=== PATIENT | male | born 1965 | race Caucasian/White ===

== ENCOUNTER → 2017-03-24 | Outpatient (CLI) | payer OTHER | LOC: FIMAGING 07:26 | PROVIDERS: ATTEND Internal Medicine Infectious Disease | DX: L97.821 Non-pressure chronic ulcer of other part of left lower leg limited to breakdown of skin (principal); I87.2 Venous insufficiency (chronic) (peripheral) ==

== ENCOUNTER 2017-03-31 07:16 | Day surgery (SDC) | payer OTHER ==
[2017-03-31] MEDS ORDERED: SODIUM TETRADECYL SULFATE 60 MG/2 ML VIAL IV ONE (08:16)
[2017-03-31] MEDS ORDERED: IOPAMIDOL (ISOVUE-300) 100 ML BTL ONE ×2 (08:17→10:52)
[2017-03-31] MEDS ORDERED: MIDAZOLAM 2 MG/2 ML VIAL ONE (08:27)
[2017-03-31] MEDS ORDERED: fentaNYL 100 MCG/2 ML INJ ONE (08:27)
[2017-03-31] MEDS ORDERED: NS 1,000 ML IV ONE (10:47)
[2017-03-31] MEDS ORDERED: ONDANSETRON 4 MG/2 ML VIAL IVP ONE (10:47)
== END 2017-03-31 12:34 | disposition home or self-care (01) ==
LOC: FIMAGING 07:16
PROVIDERS: ATTEND Radiology Diagnostic Radiology
PROC: 3E033TZ Introduction of Destructive Agent into Peripheral Vein, Percutaneous Approach (ICD-10-PCS; principal; 2017-03-31 11:10)
DX: I83.813 Varicose veins of bilateral lower extremities with pain (principal); L97.829 Non-pressure chronic ulcer of other part of left lower leg with unspecified severity; I87.312 Chronic venous hypertension (idiopathic) with ulcer of left lower extremity; I87.2 Venous insufficiency (chronic) (peripheral); H54.7 Unspecified visual loss; Z96.21 Cochlear implant status
CPT/HCPCS: 36470; 36471; 75822; 99152; 99153; C1769; J2250; J3010; Q9967

== ENCOUNTER → 2017-09-05 | Outpatient (CLI) | payer OTHER | LOC: FCPNEURO 23:16 | PROVIDERS: ATTEND Student in an Organized Health Care Education/Training Program | DX: G47.33 Obstructive sleep apnea (adult) (pediatric) (principal) ==

== ENCOUNTER 2017-12-29 12:43 | Inpatient (IN) | payer OTHER ==
[2017-12-29] MEDS ORDERED: ONDANSETRON DISINTEGRATING 4 MG TAB PO PRN (13:29)
[2017-12-29] MEDS ORDERED: ONDANSETRON 4 MG/2 ML VIAL IVP PRN (13:29)
[2017-12-29] MEDS ORDERED: ceFAZolin 2 GM/DEXTROSE 100 ML IV SCH (14:00)
[2017-12-29 14:54] LABS: PLATELET COUNT 184 10^3/uL (150-400)
[2017-12-29] MEDS: ceFAZolin 2 GM/SWFI 2 GM/20 ML SYR IVP SCH ×2 (14:58→21:10)
--- NOTE | 2017-12-29 16:08 | PCMIDPN ---
Assessment/Plan: Assessment/Plan: * Left lower extremity cellulitis: Will treat with cefazolin and lower extremity elevation. Follow clinically over time. See [facility] today for full details. This note can be viewed in Metaps under separate visit for 12/29/2017. 12/29/17 16:06 Subjective: Please see wound healing center note for full details. Objective: Vital Signs Temp Pulse Resp BP Pulse Ox 37.2 C 78 16 164/94 H 94 12/29/17 13:24 12/29/17 13:24 12/29/17 13:24 12/29/17 13:24 12/29/17 13:24 Laboratory Results 12/29/17 14:30 12/29/17 14:30 C-Reactive Protein 10.3 mg/L (<10.0) H 12/29/17 14:30 ICD10 Worksheet Patient Problems: Problems Problem Status Onset Cellulitis and abscess of left leg Acute Cellulitis and abscess of left leg Acute - ICD10 Problem Qualifiers (1) Cellulitis and abscess of left leg (2) Cellulitis and abscess of left leg
[2017-12-29] MEDS ORDERED: hydrALAZINE 25 MG TAB PO PRN (16:47)
[2017-12-29] MEDS ORDERED: D50W 25 GM/50 ML VIAL IVP PRN (16:47)
--- NOTE | 2017-12-29 16:49 | WOCRNPDOC ---
WOCRN Advanced Assessment Note - Skin Integrity Problem, Advanced Assess Left Lower Medial Leg Venous Stasis Ulcer Dressing Type: Open to Air Exudate Amount: None Sophie Wound Tissue: Erythema, Hot, Hemosiderin Staining, Venous Dermatitis, Xerotic, Scarred Wound Bed Constitution: Scab Site Measurement - Head-to-Toe Length X Width X Depth (cm): 10.3x4.1x0.1 Skin Integrity Problem Comment: Area mostly with small scabs but also with small partial thickness openings. Patient was at outpatient wound healing center this morning and sent to the ED for suspicion of infection in left lower leg. Patient has bilateral venous stasis changes in lower legs. Calf measurement in cm: R: 42.5, L: 46, Ankle R: 24.5, L 27.5. Tubigrip F supplied. Discussed plan with Kaykay MANUEL.
--- NOTE | 2017-12-29 18:22 | GHP ---
[f rep st] HISTORY AND PHYSICAL DATE OF ADMISSION: 12/29/2017 CHIEF COMPLAINT: Left lower extremity swelling, redness. HISTORY OF PRESENT ILLNESS: The patient is a 52-year-old man with a history of chronic lower extremi ty venous stasis and diabetes mellitus as well as hypertension and blindness since , who present s to the hospital for direct admission from the [facility]. He has been followed i n wound care for chronic venous insufficiency. He has had a prior history of ablation in 2016. Toda y in the outpatient clinic, he noted increasing edema and tenderness in his left lower extremity. He was evaluated by the infectious disease specialist, Dr. Ivan Logan, who felt that he had increased er ythema. He does endorse some low-grade subjective fevers over the past couple of days, though he is afebrile on arrival. He denies chills or rigors. He has had previous cultures of the leg from 2016 that grew methicillin-sensitive Staph aureus. He otherwise denies chest pain, shortness of breath, a bdominal pain, or changes in his bowel or bladder habits. He is admitted to the hospital for IV anti biotics and further management. PAST MEDICAL HISTORY: 1. Diabetes mellitus type 2. His A1c in May 2017, was 8.4. After starting metformin and making dietary changes, his A1c was down to 6.1 in September 2017. 2. Chronic bilateral lower extremity venous insufficiency with chronic venous stasis ulcers and vari cosities. 3. Scoliosis. 4. GERD. 5. 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 6. Peripheral neuropathy. MEDICATIONS: Please see [facility] for completed outpatient medication list. ALLERGIES: Adhesive tape and Lasix. FAMILY HISTORY: His father had dementia. SOCIAL HISTORY: The patient lives independently with his who is also blind, they assist each ot her. He denies tobacco or alcohol use. He is on disability. REVIEW OF SYSTEMS: A 10-point review of systems was performed and was negative except as per HPI. OBJECTIVE: VITAL SIGNS: Temperature is 37.2, blood pressure 164/94, heart rate 78, respiratory rate 16. He is 94% on room air. GENERAL: Patient is awake, alert, and oriented in no acute distress. H EENT: Head is atraumatic, normocephalic. Pupils equal, round, and reactive to light. Extraocular m uscles intact. Oropharynx clear. Mucous members are moist. NECK: Supple. There is no JVD. HEART : Regular rate and rhythm, without murmur. LUNGS: Clear to auscultation bilaterally. ABDOMEN: Sof t, obese, nondistended, nontender. Normoactive bowel tones. EXTREMITIES: He has bilateral chronic venous stasis changes with brawny edema. However, his left lower extremity has increased erythema ex tending into the foot and calcaneal region. There are also some chronic wounds without purulence or oozing. His feet are otherwise warm and well perfused. He has slightly increased edema on the left compared to the right. NEUROLOGIC EXAM: Grossly nonfocal. Noting chronic blindness. LABORATORY DATA: CBC reveals white blood cell count of 13.7 with 71% neutrophils. Basic metabolic p narayan shows normal electrolytes. Creatinine 1.1. Blood glucose on arrival of 111. CRP is 10.3. ASSESSMENT AND PLAN: The patient is a 52-year-old male with history of diabetes, hypertension, and c hronic venous insufficiency. He is admitted to the hospital with left lower extremity cellulitis. 1. Left lower extremity cellulitis in the setting of chronic venous stasis and chronic ulcers. He w as evaluated by Infectious Disease in the clinic this afternoon. He has had previous cultures with m ethicillin-sensitive staphylococcus aureus. He will be treated with cefazolin 2 g intravenous q.8 ho urs. Wound care consult is requested. He needs to elevate his leg. I will continue to follow his c linical course. He has no evidence of sepsis. We will check a lower extremity ultrasound to rule ou t deep vein thrombosis. 2. Diabetes mellitus type 2. His most recent A1c was 6.1. I will continue his metformin as I do no t expect he will undergo any imaging. We will also provide as needed sliding scale insulin, if neede d. 3. Hypertension. His blood pressure is suboptimally controlled on arrival. We will plan to continu e his outpatient medications, including propranolol and triamterene hydrochlorothiazide. I will also provide as needed hydralazine. 4. Hypothyroidism. Continue levothyroxine. 5. Peripheral neuropathy. Continue gabapentin. 6. 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 7. Deep vein thrombosis prophylaxis. Lovenox. CODE STATUS: Patient is a full code. DISPOSITION: Patient is admitted to inpatient status. I anticipate greater than 48 hours hospitaliz ation for ongoing management of his lower extremity cellulitis. PT/OT consults are requested. /[id number]/MODL
[2017-12-29] MEDS: INSULIN LISPRO 100 UNIT/ML SC SCH (18:47)
[2017-12-29] MEDS: PROPRANOLOL SR 80 MG CAP PO SCH (21:08)
[2017-12-29] MEDS: GABAPENTIN 100 MG CAP PO SCH (21:08)
[2017-12-29] MEDS: metFORMIN HCL 500 MG TAB PO SCH (23:52)
[2017-12-30 05:06] LABS: PLATELET COUNT 172 10^3/uL (150-400)
[2017-12-30] MEDS: ceFAZolin 2 GM/SWFI 2 GM/20 ML SYR IVP SCH ×3 (06:30→21:39)
[2017-12-30] MEDS: LEVOTHYROXINE 100 MCG TAB PO SCH (06:30)
--- NOTE | 2017-12-30 08:39 | HOSPPROG ---
Hospitalist Progress Note Assessment/Plan: LLE cellulitis in setting of chronic venous insufficiency and chronic LE wounds - A bit improved today. WBCs normalized, afebrile. Prior leg Cx with MSSA in 2016. U/S neg for DVT. Left inguinal adenopathy likely 2/2 LLE cellulitis, follow. -Continue IV Cefazolin, wound care, elevate leg -suspect he can d/c tomorrow on oral atbx such as keflex if ID agrees Hypertension - cont outpt meds Diabetes type 2 - well controlled, a1c 6.5. Cont metformin, SSI. 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 Less pain. No fever. Eating well. No CP or SOB. Objective: Vital Signs Temp Pulse Resp BP Pulse Ox 36.5 C 75 17 141/98 H 97 12/30/17 04:00 12/30/17 04:00 12/30/17 04:00 12/30/17 04:00 12/30/17 04:00 Laboratory Results 12/30/17 04:26 12/29/17 14:30 12/29/17 12/30/17 12/31/17 05:59 05:59 05:59 Intake Total 600 Output Total 300 Balance -300 600 - Physical Exam Constitutional: no apparent distress Eyes: PERRL Ears, Nose, Mouth, Throat: moist mucous membranes Cardiovascular: regular rate and rhythym Respiratory: no respiratory distress, clear to auscultation Gastrointestinal: normoactive bowel sounds, soft, non-tender abdomen Skin: warm Musculoskeletal: other (B/L LE brawny edema, decreased erythema of LLE, wounds stable) Neurologic: AAOx3 Psychiatric: interacting appropriately ICD10 Worksheet Patient Problems: Problems Problem Status Onset Cellulitis and abscess of left leg Acute Cellulitis and abscess of left leg Acute
[2017-12-30] MEDS ORDERED: POTASSIUM CHLORIDE 20 MEQ PO SCH (09:00)
[2017-12-30] MEDS: metFORMIN HCL 500 MG TAB PO SCH ×2 (09:32→21:40)
[2017-12-30] MEDS: PROPRANOLOL SR 80 MG CAP PO SCH ×2 (09:33→21:39)
[2017-12-30] MEDS: TRIAMTERENE/HCTZ 75/50 1 EACH TAB PO SCH (09:35)
[2017-12-30] MEDS: GABAPENTIN 100 MG CAP PO SCH ×3 (09:35→21:40)
[2017-12-30] MEDS: PANTOPRAZOLE SODIUM 40 MG TAB PO SCH (09:35)
[2017-12-30] MEDS: ENOXAPARIN 40 MG/0.4 ML SYR SC SCH (09:42)
--- NOTE | 2017-12-30 11:03 | PDMN ---
Medical Necessity Medical necessity: Patient meets inpatient criteria per physician note and [facility] M -69 Cellulitis (presented at O/P wound clinic with low-grade subjective fever, increasing erythema, tenderness, edema LLE, leukocytosis/WBC > 13,000; seen by ID and started on IV Cefazolin ; previous cultures in 2016 with MSSA; history of chronic LE venous stasis and DM2, HTN, blind from ; anticipated LOS > 2 midnights for ongoing IV antibiotics and wound evaluation/treatment.)
--- NOTE | 2017-12-30 12:12 | PCMIDPN ---
Assessment/Plan: Assessment: Left lower leg cellulitis. Patient has chronic dermatitis and wounds the left lower leg. This resulted in significant cellulitis seen in Wound Clinic prior to his admission. His visual problems complicate home therapy. At this moment it appears that his legs have improved since yesterday. Will continue the cefazolin for another 1-2 days to ensure resolution of soft tissue infection prior to transition oral therapy to sent home. Plan: 1. Continue IV cefazolin presently. 2. Follow appearance of the left lower extremity. 3. Probable discharge home on oral Keflex in 2-3 days. 12/30/17 17:33 Subjective: Patient is sitting in a chair in his hospital room. He is legally blind. His is in the room as well. She is also sight impaired. Patient states that he is feeling somewhat better today. Objective: Cefazolin # 1 Vital Signs Temp Pulse Resp BP Pulse Ox 37.0 C 70 16 116/67 92 12/30/17 11:48 12/30/17 11:48 12/30/17 11:48 12/30/17 11:48 12/30/17 11:48 Laboratory Results 12/30/17 04:26 12/29/17 14:30 12/29/17 12/30/17 12/31/17 05:59 05:59 05:59 Intake Total 600 Output Total 300 Balance -300 600 C-Reactive Protein 10.3 mg/L (<10.0) H 12/29/17 14:30 - Physical Exam General Appearance: WD/WN, alert, no apparent distress, non-toxic Respiratory: lungs clear, No respiratory distress Cardiac/Chest: regular rate, rhythm, No tachycardia Extremities: calf tenderness, inflammation (Mild), swelling (Left lower calf), No non-tender (Left calf with some tenderness to palpation. No fluctuance.), No erythema ICD10 Worksheet Patient Problems: Problems Problem Status Onset Cellulitis and abscess of left leg Acute Cellulitis and abscess of left leg Acute
--- NOTE | 2017-12-30 12:55 | ASMTCMCOM ---
CM Note CM Note Notes: Chart reviewed for dc planning purposes. Patient direct admit from outpatient wound clinic for signs of lower extremity cellulitis. He is being treated by ID with antibiotics. He has a complex medical history including diabetes and blindness. Per PT he has no needs. CM to follow. Date Signed: 12/30/2017 12:54 PM Electronically Signed By:Blanca Gaspar RN
[2017-12-30] MEDS: POTASSIUM CHLORIDE 10 MEQ PO SCH (12:56)
[2017-12-30] MEDS: INSULIN LISPRO 100 UNIT/ML SC SCH ×3 (13:26→19:17)
[2017-12-31] MEDS: ceFAZolin 2 GM/SWFI 2 GM/20 ML SYR IVP SCH ×3 (06:25→21:42)
[2017-12-31] MEDS: LEVOTHYROXINE 100 MCG TAB PO SCH (06:25)
--- NOTE | 2017-12-31 08:26 | HOSPPROG ---
Hospitalist Progress Note Assessment/Plan: LLE cellulitis in setting of chronic venous insufficiency and chronic LE wounds - Improving. WBCs normalized, afebrile. Prior leg Cx with MSSA in 2016. U/S neg for DVT. Left inguinal adenopathy seen on u/s likely 2/2 LLE cellulitis, outpt follow up to ensure resolution. -Continue IV Cefazolin, wound care, elevate leg -suspect he can d/c in 1-2 days on oral atbx such as keflex if ID agrees Hypertension - cont outpt meds Diabetes type 2 - well controlled, a1c 6.5. Cont metformin, SSI. 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 Up in chair. Less pain in LLE. No fevers. Good appetite. Objective: Vital Signs Temp Pulse Resp BP Pulse Ox 37.0 C 78 16 145/86 H 95 12/31/17 04:00 12/31/17 04:00 12/31/17 04:00 12/31/17 04:00 12/31/17 04:00 Laboratory Results 12/30/17 04:26 12/29/17 14:30 12/30/17 12/31/17 01/01/18 05:59 05:59 05:59 Intake Total 1200 Output Total 300 250 300 Balance -300 950 -300 - Physical Exam Constitutional: no apparent distress Eyes: PERRL Ears, Nose, Mouth, Throat: moist mucous membranes Cardiovascular: regular rate and rhythym Respiratory: no respiratory distress Gastrointestinal: normoactive bowel sounds Genitourinary: no bladder fullness Skin: warm Musculoskeletal: other (b/l LE's with brawny edema c/w venous stasis, LLE with decreased erythema, decreased warmth) Neurologic: AAOx3 Psychiatric: interacting appropriately ICD10 Worksheet Patient Problems: Problems Problem Status Onset Cellulitis and abscess of left leg Acute Cellulitis and abscess of left leg Acute
[2017-12-31] MEDS: INSULIN LISPRO 100 UNIT/ML SC SCH ×3 (09:10→18:17)
[2017-12-31] MEDS: metFORMIN HCL 500 MG TAB PO SCH ×2 (09:25→21:42)
[2017-12-31] MEDS: GABAPENTIN 100 MG CAP PO SCH ×3 (09:25→21:43)
[2017-12-31] MEDS: PROPRANOLOL SR 80 MG CAP PO SCH ×2 (09:25→21:43)
[2017-12-31] MEDS: PANTOPRAZOLE SODIUM 40 MG TAB PO SCH (09:26)
[2017-12-31] MEDS: TRIAMTERENE/HCTZ 75/50 1 EACH TAB PO SCH (09:26)
[2017-12-31] MEDS: POTASSIUM CHLORIDE 10 MEQ PO SCH (09:27)
[2017-12-31] MEDS: ENOXAPARIN 40 MG/0.4 ML SYR SC SCH (09:28)
--- NOTE | 2017-12-31 13:19 | PCMIDPN ---
Assessment/Plan: Assessment/Plan: * Left lower extremity cellulitis: Clinically improved but still with residual cellulitis present. Not ready to change to oral antibiotics currently. Given underlying venous insufficiency, improvement may be slow. Continue cefazolin and lower extremity elevation. 12/31/17 13:16 Subjective: Patient with decreasing pain in left lower extremity. No diarrhea. Objective: Vital Signs Temp Pulse Resp BP Pulse Ox 36.7 C 75 18 130/104 H 92 12/31/17 12:00 12/31/17 12:00 12/31/17 12:00 12/31/17 12:00 12/31/17 12:00 Laboratory Results 12/30/17 04:26 12/29/17 14:30 12/30/17 12/31/17 01/01/18 05:59 05:59 05:59 Intake Total 1200 Output Total 300 250 300 Balance -300 950 -300 C-Reactive Protein 10.3 mg/L (<10.0) H 12/29/17 14:30 Cefazolin # 2 Ultrasound no DVT; prominent lymph node in left inguinal region present - Physical Exam General Appearance: alert, non-toxic EENT: No thrush Extremities: inflammation (Left lower extremity erythema less prominent but still with cellulitis along foot and medial aspect of leg; some wrinkling of skin an early desquamation beginning) Abdomen: non-tender, No distended Skin: other (Scattered resolving hemorrhagic pustular lesions above region of cellulitis) ICD10 Worksheet Patient Problems: Problems Problem Status Onset Cellulitis and abscess of left leg Acute Cellulitis and abscess of left leg Acute - ICD10 Problem Qualifiers (1) Cellulitis and abscess of left leg (2) Cellulitis and abscess of left leg
--- NOTE | 2017-12-31 17:46 | ASMTCMCOM ---
CM Note CM Note Notes: Per MD note, pt will be here for 1-2 more days, once he is ready for oral abx. Pt cleared by PT/OT for home, of note pt and are blind but are well connected to community resources. Anticipate will dc home w/support of when medically stable. CM avialable for any changes. DC Plan: Independent Date Signed: 12/31/2017 05:45 PM Electronically Signed By:Inez Sanchez RN
[2018-01-01] MEDS: ceFAZolin 2 GM/SWFI 2 GM/20 ML SYR IVP SCH ×3 (06:00→21:10)
[2018-01-01] MEDS: LEVOTHYROXINE 100 MCG TAB PO SCH (06:00)
[2018-01-01] MEDS: INSULIN LISPRO 100 UNIT/ML SC SCH ×3 (09:38→16:06)
[2018-01-01] MEDS: TRIAMTERENE/HCTZ 75/50 1 EACH TAB PO SCH (09:39)
[2018-01-01] MEDS: GABAPENTIN 100 MG CAP PO SCH ×3 (09:39→21:11)
[2018-01-01] MEDS: metFORMIN HCL 500 MG TAB PO SCH ×2 (09:39→21:11)
[2018-01-01] MEDS: PROPRANOLOL SR 80 MG CAP PO SCH ×2 (09:39→21:11)
[2018-01-01] MEDS: PANTOPRAZOLE SODIUM 40 MG TAB PO SCH (09:39)
[2018-01-01] MEDS: ENOXAPARIN 40 MG/0.4 ML SYR SC SCH (09:40)
[2018-01-01] MEDS: POTASSIUM CHLORIDE 10 MEQ PO SCH (09:41)
[2018-01-01] MEDS: ACETAMINOPHEN 325 MG TAB PO PRN ×2 (09:44→21:11)
--- NOTE | 2018-01-01 15:51 | PCMIDPN ---
Assessment/Plan: Assessment/Plan: * Left lower extremity cellulitis: Slow clinical improvement with less intense erythema present. Residual tenderness over cellulitic area and in lymphatic distribution. Continue cefazolin and leg elevation. Anticipate likely to need IV antibiotics through tomorrow with transition to oral antibiotics on 2017. Continue local wound care. Tolerating cefazolin well. 01/01/18 15:48 Subjective: Patient with pain in left lower extremity similar to prior. Loose bowel movement this a.m. but has not been consistent. Objective: Vital Signs Temp Pulse Resp BP Pulse Ox 36.8 C 74 20 140/81 H 93 01/01/18 14:27 01/01/18 14:27 01/01/18 14:27 01/01/18 14:27 01/01/18 14:27 Laboratory Results 12/30/17 04:26 12/29/17 14:30 12/31/17 01/01/18 01/02/18 05:59 05:59 05:59 Intake Total 1200 350 Output Total 250 700 300 Balance 950 -350 -300 C-Reactive Protein 10.3 mg/L (<10.0) H 12/29/17 14:30 Cefazolin # 3 - Physical Exam General Appearance: alert, no apparent distress EENT: No thrush Respiratory: lungs clear, No respiratory distress Cardiac/Chest: regular rate, rhythm Extremities: inflammation (Left lower extremity with persistent erythema consistent with cellulitis over dorsal and medial aspect of foot with extension to medial lower leg) Abdomen: non-tender, No distended Skin: other (Venous insufficiency changes over left lower extremity; scant serous drainage medially) Lymphatic: other (Tender in left medial thigh in lymphatic distribution) ICD10 Worksheet Patient Problems: Problems Problem Status Onset Cellulitis and abscess of left leg Acute Cellulitis and abscess of left leg Acute - ICD10 Problem Qualifiers (1) Cellulitis and abscess of left leg (2) Cellulitis and abscess of left leg
--- NOTE | 2018-01-01 16:30 | HOSPPROG ---
Hospitalist Progress Note Assessment/Plan: 52 yo M w/LLE cellulitis # LLE cellulitis: being treated with cefazolin, in the setting of chronic venous stasis, some minimal improvement per patient, will have ID f/u # chronic venous stasis: associated with above # IP status Patient new to my care. Old records reviewed and summarized as above. Subjective: no significant overnight events, patient states his leg still hurts but improved from prior Objective: Vital Signs Temp Pulse Resp BP Pulse Ox 36.8 C 74 20 140/81 H 93 01/01/18 14:27 01/01/18 14:27 01/01/18 14:27 01/01/18 14:27 01/01/18 14:27 Laboratory Results 12/30/17 04:26 12/29/17 14:30 12/31/17 01/01/18 01/02/18 05:59 05:59 05:59 Intake Total 1200 350 Output Total 250 700 300 Balance 950 -350 -300 awake alert nad anicteric' op clear rr no mrg cta b soft nt nd no cce warm dry well perfused oriented apropatie - Time Spent With Patient Time Spent with Patient: greater than 35 minutes Time Spent with Patient: Greater than 35 minutes spent on this patients care, greater than 50% of time spent counseling, educating, and coordinating care regarding the above mentioned plan. ICD10 Worksheet Patient Problems: Problems Problem Status Onset Cellulitis and abscess of left leg Acute Cellulitis and abscess of left leg Acute
[2018-01-02] MEDS: LEVOTHYROXINE 100 MCG TAB PO SCH (06:15)
[2018-01-02] MEDS: ceFAZolin 2 GM/SWFI 2 GM/20 ML SYR IVP SCH ×3 (06:16→21:16)
[2018-01-02] MEDS: ENOXAPARIN 40 MG/0.4 ML SYR SC SCH (09:19)
[2018-01-02] MEDS: GABAPENTIN 100 MG CAP PO SCH ×3 (09:19→21:15)
[2018-01-02] MEDS: metFORMIN HCL 500 MG TAB PO SCH ×2 (09:19→21:15)
[2018-01-02] MEDS: TRIAMTERENE/HCTZ 75/50 1 EACH TAB PO SCH (09:20)
[2018-01-02] MEDS: PROPRANOLOL SR 80 MG CAP PO SCH ×2 (09:20→21:16)
[2018-01-02] MEDS: PANTOPRAZOLE SODIUM 40 MG TAB PO SCH (09:20)
[2018-01-02] MEDS: INSULIN LISPRO 100 UNIT/ML SC SCH ×3 (09:20→15:03)
[2018-01-02] MEDS: POTASSIUM CHLORIDE 10 MEQ PO SCH (09:21)
[2018-01-02] MEDS: ACETAMINOPHEN 325 MG TAB PO PRN (09:28)
--- NOTE | 2018-01-02 13:31 | HOSPPROG ---
Hospitalist Progress Note Assessment/Plan: 52 yo M w/LLE cellulitis # LLE cellulitis: being treated with cefazolin with plan to transition to oral cephalexin in am, in the setting of chronic venous stasis, some minimal improvement per patient, will have ID f/u at wound clinic # chronic venous stasis: associated with above # IP status Subjective: no acute overnight events, patient states he notes some minimal improvement Objective: Vital Signs Temp Pulse Resp BP Pulse Ox 36.6 C 63 16 127/76 H 93 01/02/18 07:15 01/02/18 09:20 01/02/18 07:15 01/02/18 09:20 01/02/18 07:15 Laboratory Results 12/30/17 04:26 12/29/17 14:30 01/01/18 01/02/18 01/03/18 05:59 05:59 05:59 Intake Total 350 550 Output Total 700 1400 Balance -350 -850 awake alert nad anicteric' op clear rr no mrg cta b soft nt nd no cce warm dry well perfused oriented apropatie - Time Spent With Patient Time Spent with Patient: greater than 35 minutes Time Spent with Patient: Greater than 35 minutes spent on this patients care, greater than 50% of time spent counseling, educating, and coordinating care regarding the above mentioned plan. ICD10 Worksheet Patient Problems: Problems Problem Status Onset Cellulitis and abscess of left leg Acute Cellulitis and abscess of left leg Acute
--- NOTE | 2018-01-02 14:46 | PCMIDPN ---
Assessment/Plan: Assessment/Plan: * Left lower extremity cellulitis: Significant improvement today with decreased intensity of erythema and resolution of warmth and tenderness. Plan cefazolin through today with transition to oral cephalexin 500 mg 4 times per day tomorrow with anticipated discharge at that point in time. He typically is seen in Wound Care every Wednesday and can maintain that follow-up. Continue lower extremity elevation and wound care. 01/02/18 14:44 Subjective: Patient with loose stool x2 today. No abdominal cramping. Less pain in left lower extremity. Objective: Vital Signs Temp Pulse Resp BP Pulse Ox 36.6 C 63 16 127/76 H 93 01/02/18 07:15 01/02/18 09:20 01/02/18 07:15 01/02/18 09:20 01/02/18 07:15 Laboratory Results 12/30/17 04:26 12/29/17 14:30 01/01/18 01/02/18 01/03/18 05:59 05:59 05:59 Intake Total 350 550 Output Total 700 1400 Balance -350 -850 C-Reactive Protein 10.3 mg/L (<10.0) H 12/29/17 14:30 Cefazolin # 4 - Physical Exam General Appearance: alert, no apparent distress, non-toxic EENT: No thrush Respiratory: lungs clear, No respiratory distress Cardiac/Chest: regular rate, rhythm Extremities: inflammation (Left lower extremity with significant decrease in intensity of erythema with resolution of warmth and tenderness; no weeping from medial aspect of leg; some early desquamation present) ICD10 Worksheet Patient Problems: Problems Problem Status Onset Cellulitis and abscess of left leg Acute Cellulitis and abscess of left leg Acute - ICD10 Problem Qualifiers (1) Cellulitis and abscess of left leg (2) Cellulitis and abscess of left leg
[2018-01-03] MEDS: ceFAZolin 2 GM/SWFI 2 GM/20 ML SYR IVP SCH (06:10)
[2018-01-03] MEDS: LEVOTHYROXINE 100 MCG TAB PO SCH (06:10)
[2018-01-03] MEDS: INSULIN LISPRO 100 UNIT/ML SC SCH ×2 (07:39→11:17)
[2018-01-03 08:09] VITALS: BP 143/80; PULSE 63; RESP 15; TEMP 97.7; O2SAT 95
[2018-01-03] MEDS: metFORMIN HCL 500 MG TAB PO SCH (09:30)
[2018-01-03] MEDS: GABAPENTIN 100 MG CAP PO SCH (09:30)
[2018-01-03] MEDS: PROPRANOLOL SR 80 MG CAP PO SCH (09:30)
[2018-01-03] MEDS: TRIAMTERENE/HCTZ 75/50 1 EACH TAB PO SCH (09:30)
[2018-01-03] MEDS: ACETAMINOPHEN 325 MG TAB PO PRN (09:31)
[2018-01-03] MEDS: PANTOPRAZOLE SODIUM 40 MG TAB PO SCH (09:31)
[2018-01-03] MEDS: ENOXAPARIN 40 MG/0.4 ML SYR SC SCH (09:31)
[2018-01-03] MEDS: POTASSIUM CHLORIDE 10 MEQ PO SCH (09:53)
--- NOTE | 2018-01-03 11:28 | PCMIDPN ---
Assessment/Plan: Assessment: Left lower leg cellulitis. Patient has chronic dermatitis and wounds the left lower leg. This resulted in significant cellulitis seen in Wound Clinic prior to his admission. His visual problems complicate home therapy. Patient has shown significant improvement in the swelling and erythema of his left leg. Today we will switch him over to oral Keflex for discharge. Patient will continue for at least 2 weeks total. Plan: 1. Discontinue IV cefazolin. 2. Start p.o. Keflex 500 mg 4 times a day. Anticipated 2 week total duration of treatment. 3. Patient is stable for discharge home. He will follow up in wound clinic on Wednesday. Subjective: Patient is sitting up in his chair in his hospital room. His is present at bedside. He has no new complaints. Objective: Cefazolin # 5 Vital Signs Temp Pulse Resp BP Pulse Ox 36.5 C 63 15 143/80 H 95 01/03/18 08:00 01/03/18 09:30 01/03/18 08:00 01/03/18 09:30 01/03/18 08:00 Laboratory Results 12/30/17 04:26 12/29/17 14:30 01/02/18 01/03/18 01/04/18 05:59 05:59 05:59 Intake Total 550 400 Output Total 1400 550 Balance -850 -150 C-Reactive Protein 10.3 mg/L (<10.0) H 12/29/17 14:30 - Physical Exam General Appearance: WD/WN, alert, no apparent distress, non-toxic Cardiac/Chest: regular rate, rhythm, No tachycardia Extremities: non-tender, inflammation (Mild left side), No normal inspection, No erythema ICD10 Worksheet Patient Problems: Problems Problem Status Onset Cellulitis and abscess of left leg Acute Cellulitis and abscess of left leg Acute
[2018-01-03] MEDS ORDERED: CEPHALEXIN 500 MG CAP PO SCH (12:00)
--- NOTE | 2018-01-03 12:10 | PDDCSUM ---
Discharge Summary Discharge Summary: Dates of service 12/29-01/03/18 Consultations: ID Procedures: ext venous US Hospital course by problem: # LLE cellulitis: s/p cefazolin while in house with ransition to oral cephalexin at discharge, in the setting of chronic venous stasis, will have ID f /u at wound clinic # chronic venous stasis: associated with above DC home f/u with PCP, wound clinic
--- NOTE | 2018-01-03 13:03 | ASDISCHSUM ---
Discharge Information Plan Status:Home with No Needs Medically Cleared to Leave:01/03/2018 Discharge Date:01/03/2018 CM D/C Disposition:Home, Routine, Self-Care ADT D/C Disposition:Home, Routine, Self-Care Projected Discharge Date:01/03/2018 01:00 PM Transportation at D/C:Family Discharge Delay Reason: Follow-Up Date:01/03/2018 01:00 PM Discharge Slot: Final Diagnosis: Placement Information Patient Contact Information Contact Name:RONALD Relationship: Address:[address] [place] [address] [address] Work Phone: City:[place] Alternate Phone: State/Zip Code:[place] [phone] Email: Financial Information Financial Class:Medicare Advantage Plans Primary Plan Desc:RD MEDICARE ADV Primary Plan Number:[id number] Secondary Plan Desc: Secondary Plan Number: Assessment Information [facility] CM Progress Note CM Note CM Note Notes: Chart reviewed for dc planning purposes. Patient direct admit from outpatient wound clinic for signs of lower extremity cellulitis. He is being treated by ID with antibiotics. He has a complex medical history including diabetes and blindness. Per PT he has no needs. CM to follow. Date Signed: 12/30/2017 12:54 PM Electronically Signed By:Blanca Gaspar RN [facility] CM Progress Note CM Note CM Note Notes: Per note, pt will be here for 1-2 more days, once he is ready for oral abx. Pt cleared by PT/OT for home, of note pt and are blind but are well connected to community resources. Anticipate will dc home w/support of when medically stable. CM avialable for any changes. DC Plan: Independent Date Signed: 12/31/2017 05:45 PM Electronically Signed By:Inez Sanchez RN [facility] CM Progress Note CM Note CM Note Notes: Dc order received. Anticipate dc home independently. CM available if needs/changes. Date Signed: 01/03/2018 01:01 PM Electronically Signed By:Fawn Canchola RN Intervention Information Intervention Type:*IM-Signed Date of Service:01/03/2018 11:57 AM Patient Type:Inpatient Staff Member:Harriet Caba Hours: Discipline: Severity: Comment:
--- NOTE | 2018-01-06 14:15 | PQFORM ---
PHYSICIAN QUERY FORM Needs Your Response This query form is being sent to you to assure this patient record is coded properly. Please respond to the question below: BAND LINING BANDER QUESTION: Dr Zuniga Is this patients cellulitis a complication of the patients Diabetes? x___ Yes ___ No ___ Unable to Determine ___ Other (Please Specify ) Thank You Rachel [employer] Meter Installer INSTRUCTIONS FOR RESPONSE: Answer question by clicking on the "Edit Document" button. Move cursor to area below the stars. When complete, hit "Save." Click on the "Sign" button, then click "Sign" again. Type in your PIN and hit "Enter." MTDD
== END 2018-01-03 14:40 | disposition home or self-care (01) | DRG 638 ==
LOC: F3E 12:50
PROVIDERS: ADMIT Hospitalist; ATTEND Hospitalist
DX: E11.628 Type 2 diabetes mellitus with other skin complications (principal); L03.116 Cellulitis of left lower limb; I87.8 Other specified disorders of veins; E03.9 Hypothyroidism, unspecified; I11.0 Hypertensive heart disease with heart failure; H54.0X55 Blindness right eye category 5, blindness left eye category 5; M41.9 Scoliosis, unspecified; K21.9 Gastro-esophageal reflux disease without esophagitis
CPT/HCPCS: 97162-GP; 97166-GO; J0690; J1650